=== PATIENT | male | born 1985 | race Caucasian/White ===

== ENCOUNTER 2016-05-20 15:15 | Outpatient (CLI) | payer MEDICARE, OTHER ==
[2016-04-30 16:05] VITALS: BP 152/70
[2016-05-20 15:31] LABS: BASOPHILS % 1.5 (0.0-1.5); EOSINOPHILS % 3.5 % (0.0-6.8); MEAN CORPUSCULAR HEMOGLOBIN 28.5 pg (28.0-34.0); MONOCYTES # 0.4 # k/uL (0.0-0.9); MONOCYTES % 8.2 % (0.0-11.0); NEUTROPHILS # 1.9 # k/uL (1.4-7.7)
== END 2016-05-20 15:16 ==
LOC: LAB 15:15
PROVIDERS: ATTEND Psychiatry & Neurology Psychiatry
DX: Z79.899 Other long term (current) drug therapy (principal)
CPT/HCPCS: 36415; 80061; 80164; 85025

== ENCOUNTER 2016-07-21 12:32 | Outpatient (CLI) | payer MEDICARE, OTHER ==
[2016-04-30 16:05] VITALS: BP 152/70
[2016-07-21 12:49] LABS: BASOPHILS % 1.5 (0.0-1.5); LYMPHOCYTES # 1.8 # k/uL (0.6-4.0); MEAN CORPUSCULAR HEMOGLOBIN 27.8 pg (28.0-34.0); MONOCYTES # 0.6 # k/uL (0.0-0.9); MONOCYTES % 7.5 % (0.0-11.0); NEUTROPHILS # 4.6 # k/uL (1.4-7.7)
[2016-07-21 15:03] LABS: BILIRUBIN,DIRECT 0.1 mg/dL (0.0-0.4)
== END 2016-07-21 12:33 ==
LOC: LAB 12:32
PROVIDERS: ATTEND Psychiatry & Neurology Psychiatry
DX: Z51.81 Encounter for therapeutic drug level monitoring (principal); Z79.899 Other long term (current) drug therapy
CPT/HCPCS: 36415; 80076; 80164; 85025